=== PATIENT | male | born 1960 | race Caucasian/White ===

== ENCOUNTER → 2016-06-23 | Outpatient (CLI) | payer OTHER ==
[~2016-06-23] MED LIST: ALBUAER19 INH; CEFU1TAB36 PO; LISI-461 PO; PANT40TA PO
--- NOTE | 2016-06-23 16:34 | DIAGNOSTIC IMAGING REPORT ---
L-SPINE MIN 4 VIEWS ROUTINE CLINICAL HISTORY: Back pain with left-sided radiculopathy. COMPARISON STUDY: 03/31/2010 FINDINGS: There is bilateral L5 spondylolysis. There is a grade 1 spondylolisthesis of L5 on S1. There is marked narrowing of the L5-S1 disc. No acute fractures are visualized. No destructive lesions are evident on conventional radiographic imaging. IMPRESSION: 1. No acute fractures 2. Bilateral L5 spondylolysis. Grade 1 spondylolisthesis of L5 on S1. These findings were present on the prior 2009 examination 3. Marked narrowing of the L5-S1 disc Electronically signed by: Ifeanyi Brennan M.D. 06/23/2016 4:33 PM Dictated Date/Time: 06/23/2016 4:31 PM
== END | disposition home or self-care (01) ==
LOC: C.RADBC 15:43
PROVIDERS: ATTEND Internal Medicine Geriatric Medicine
DX: M54.32 Sciatica, left side (principal); M43.17 Spondylolisthesis, lumbosacral region

== ENCOUNTER → 2017-01-11 | Day surgery (SDC) | payer OTHER ==
[2016-12-29 14:37] VITALS: Ht 180.3 cm; Wt 83.6 kg
[~2017-01-11] VITALS: Ht 180.3 cm; Wt 83.6 kg
[~2017-01-11] MED LIST changes: +LIDOCAINE HCL 2% 2 ML VIAL (20MG/ML) ONE; +PROPOFOL IV EMULSION 10 MG/ML 20 ML VIAL IV ONE; +SODIUM CHLORIDE 0.9% 500ML 500 ML IV ONE
--- NOTE | 2017-01-11 12:39 | Endo History and Physical ---
History & Physical Date of Service: Jan 11, 2017. Chief Complaint: HX OF COLON POLYPS Referring Physician: DR. IRAHETA History of Present Illness 56 yo CM who presents for colonoscopy secondary to history of colon polyps. Past Surgical History Hx Cardiac Surgery: No Hx Internal Defibrillator: No Hx Pacemaker: No Hx Abdominal Surgery: No Hx of Implantable Prosthesis: No Hx Post-Op Nausea and Vomiting: No Hx Cancer Surgery: No Hx Thoracic Surgery: No Hx Orthopedic: No Hx Urinary Tract Surgery: No Family History Colon CA Social History Smoking Status: Current Every Day Smoker Hx Substance Use: No Hx Alcohol Use: Yes (2 BEERS/DAY) Allergies Coded Allergies: Thimerosal (Verified Allergy, Unknown, Rash, 01/11/17) Current Medications Reported Home Medications Medications Dose Route/Sig Max Daily Dose Days Date Category Protonix (Pantoprazole Sodium) 40 Mg Tab 40 Mg PO DAILY PRN 12/29/16 Reported Cefuroxime Axetil 500 Mg Tab 1 Tab PO BID PRN 12/29/16 Reported Zestril (Lisinopril) 10 Mg Tab 10 Mg PO QAM 09/15/15 Reported Ventolin Inhaler (Albuterol) Aers 2 Puffs INH UD PRN 07/27/15 Reported Vital Signs Weight (Kilograms): 83.64 Height (Feet): 5 Height (Inches): 11 Date Time Temp Pulse Resp B/P (MAP) Pulse Ox O2 Delivery O2 Flow Rate FiO2 01/11/17 12:24 36.1 63 20 138/81 (100) 95 Room Air Physical Exam General Appearance: WD/WN, no apparent distress Respiratory/Chest: Auscultation: breath sounds normal Cardiovascular: Heart Auscultation: RRR Abdomen: Bowel Sounds: normal Inspection & Palpation: soft, non-distended, no tenderness, guarding & rebound Assessment and Plan Assessment: 56 yo CM who presents for colonoscopy secondary to history of colon polyps. Plan: Proceed with colonoscopy.
--- NOTE | 2017-01-11 13:04 | Discharge Instructions ---
Endoscopy Patient Instructions Date / Procedure(s) Performed Jan 11, 2017. Colonoscopy Allergy Information Coded Allergies: Thimerosal (Verified Allergy, Unknown, Rash, 01/11/17) Discharge Date / Findings Jan 11, 2017. Diverticulosis Internal hemorrhoids Medication Instructions OK to resume all medications today as prescribed Reported Home Medications Medications Dose Route/Sig Max Daily Dose Days Date Category Protonix (Pantoprazole Sodium) 40 Mg Tab 40 Mg PO DAILY PRN 12/29/16 Reported Cefuroxime Axetil 500 Mg Tab 1 Tab PO BID PRN 12/29/16 Reported Zestril (Lisinopril) 10 Mg Tab 10 Mg PO QAM 09/15/15 Reported Ventolin Inhaler (Albuterol) Aers 2 Puffs INH UD PRN 07/27/15 Reported Provider Instructions Activity Restrictions - No exercising or heavy lifting for 24 hours. - Do not drink alcohol the day of the procedure. - Do not drive a car or operate machinery until the day after the procedure. - Do not make any important decisions or sign important papers in 24 hours after the procedure. Following Day: - Return to full activity which may include returning to work/school. Diet Start your diet with liquids and light foods (jello, soup, juice, toast). Then eat your usual diet if not nauseated. Treatment For Common After Affects For mild abdominal pain, bloating, or excessive gas: - Rest - Eat lightly - Lie on right side Follow-Up Information Follow-up with DR. IRAHETA as scheduled Anesthesia Information What You Should Know You have had a procedure that required some medicine to reduce anxiety and discomfort. This treatment is called moderate sedation. After receiving the treatment, you may be sleepy, but you will be able to breathe on your own. The effects of the treatment may last for several hours. Follow these instructions along with Activity/Diet recommendations noted above: * Do NOT do anything where dizziness or clumsiness would be dangerous. * Rest quietly at home today, then you can be up and about tomorrow. * Have a responsible person stay with you the rest of today. * You may have had an I.V. today. If so, you may take the dressing off later today. Recommendations Call your doctor if: * Trouble breathing * Continuous vomiting for more than 24 hours * Temperature above 101 degrees * Severe abdominal pain or bloating * Pain not relieved by pain medicine ordered * There is increased drainage or redness from any incision * A large amount of rectal bleeding greater than 2-3 tablespoons. (If you had a polyp/s removed or have hemorrhoids, a small amount of blood - from the rectum is to be expected.) * You have any unanswered questions or concerns. IN THE EVENT OF A SERIOUS EMERGENCY, GO TO THE NEAREST EMERGENCY ROOM Your discharge instructions were prepared by provider Santana Schumacher. Patient Instructions Signature Page Ron Montiel Patient (or Guardian) Signature/Date: I have read and understand the instructions given to me by my caregivers. Caregiver/RN/Doctor Signature/Date: The above-named patient and/or guardian has received patient instructions on this date. + Original Patient Signature Page (only) stays with chart. Please make copy for patient.
--- NOTE | 2017-01-11 13:25 | Anesthesiology Progress Note ---
Anesthesia Post Op Note Date & Time Jan 11, 2017 at 13:25 Vital Signs Pain Intensity: 0 Vital Signs Past 12 Hours Date Time Temp Pulse Resp B/P (MAP) Pulse Ox O2 Delivery O2 Flow Rate FiO2 01/11/17 13:21 55 16 123/82 (96) 97 Room Air 01/11/17 13:06 60 16 96/61 (73) 96 Room Air 01/11/17 12:24 36.1 63 20 138/81 (100) 95 Room Air Notes Mental Status: alert / awake / arousable, participated in evaluation Pt Amnestic to Procedure: Yes Nausea / Vomiting: adequately controlled Pain: adequately controlled Airway Patency, RR, SpO2: stable & adequate BP & HR: stable & adequate Hydration State: stable & adequate Anesthetic Complications: no major complications apparent
[2017-01-11 13:36] VITALS: BP 127/84; PULSE 56; O2SAT 97
--- NOTE | 2017-01-12 00:15 | GI REPORT ---
Procedure Date: 01/11/2017 12:29 PM Procedure: Colonoscopy Indications: High risk colon cancer surveillance: Personal history of colonic polyps Medicines: Monitored Anesthesia Care Complications: No immediate complications. Estimated Blood Loss: Estimated blood loss: none. Procedure: Pre-Anesthesia Assessment: - Prior to the procedure, a History and Physical was performed, and patient medications and allergies were reviewed. The patient's tolerance of previous anesthesia was also reviewed. The risks and benefits of the procedure and the sedation options and risks were discussed with the patient. All questions were answered, and informed consent was obtained. Prior Anticoagulants: The patient has taken no previous anticoagulant or antiplatelet agents. ASA Grade Assessment: II - A patient with mild systemic disease. After reviewing the risks and benefits, the patient was deemed in satisfactory condition to undergo the procedure. After I obtained informed consent, the scope was passed under direct vision. Throughout the procedure, the patient's blood pressure, pulse, and oxygen saturations were monitored continuously. The Scope was introduced through the anus and advanced to the terminal ileum. The colonoscopy was performed without difficulty. The patient tolerated the procedure well. The quality of the bowel preparation was good. The terminal ileum, ileocecal valve, appendiceal orifice, and rectum were photographed. Findings: Multiple small-mouthed diverticula were found in the sigmoid colon. Non-bleeding internal hemorrhoids were found during retroflexion. The hemorrhoids were small. Impression: - Diverticulosis in the sigmoid colon. - Non-bleeding internal hemorrhoids. - No specimens collected. Recommendation: - Resume previous diet. - Continue present medications. - Repeat colonoscopy in 5 years for surveillance. - Return to primary care physician [Return Day]. Santana Schumacher DO 01/11/2017 1:09:16 PM This report has been signed electronically. Note Initiated On: 01/11/2017 12:29 PM I attest to the content of the Intraoperative Record and orders documented therein, exceptions below
== END | disposition home or self-care (01) ==
LOC: C.GI 12:06
PROVIDERS: ATTEND Internal Medicine
DX: Z12.11 Encounter for screening for malignant neoplasm of colon (principal); Z87.19 Personal history of other diseases of the digestive system; K57.30 Diverticulosis of large intestine without perforation or abscess without bleeding; K64.8 Other hemorrhoids; Z80.0 Family history of malignant neoplasm of digestive organs; F17.200 Nicotine dependence, unspecified, uncomplicated